=== PATIENT | female | born 1940 | race Caucasian/White ===

== ENCOUNTER → 2017-05-04 | Outpatient (CLI) | payer OTHER ==
[~2017-05-04] MED LIST: ACET-1256 PO; ASPI-435 PO; ATOR-14 PO; CALC1TAB9 PO; CITA40TA12 PO; ERGO500011 PO; FERR1TAB13 PO; IMD/2 PO; LISI-725 PO; LPR25 PO; METF1000 PO; MULTTAB58 PO; PRLSR20 PO
[2017-05-04 13:49] LABS: HEMATOCRIT 41.9 % (37-47); MEAN CELL VOLUME 90.9 fL (80-100); MEAN CORPUSCULAR HEMOGLOBIN 29.1 pg (25-34); MEAN PLATELET VOLUME 12.3 fL (7.4-10.4); PLATELET COUNT 314 K/uL (130-400); RED BLOOD COUNT 4.61 M/uL (4.2-5.4); WHITE BLOOD COUNT 7.88 K/uL (4.8-10.8)
[2017-05-04 13:52] LABS: ESTIMATED AVERAGE GLUCOSE 171 mg/dl; HA1C FLAG Normal (Normal)
[2017-05-04 14:08] LABS: ALT/SGPT 18 U/L (12-78); BLOOD UREA NITROGEN 14 mg/dl (7-18); BUN/CREATININE RATIO 13.1 (10-20); CARBON DIOXIDE 25 mmol/L (21-32); CHLORIDE 102 mmol/L (98-107); CHOLESTEROL 139 mg/dl (0-200); CREATININE 1.07 mg/dl (0.60-1.20); GLUCOSE 156 mg/dl (70-99); POTASSIUM 4.5 mmol/L (3.5-5.1); SODIUM 133 mmol/L (136-145)
[2017-05-04 14:19] LABS: ALKALINE PHOSPHATASE 138 U/L (45-117); AST/SGOT 11 U/L (15-37); CHOLESTEROL/HDL RATIO 2.2; HDL CHOLESTEROL 63 mg/dl; LDL CHOLESTEROL CALCULATED 34 mg/dl; TRIGLYCERIDES 208 mg/dl (0-150); VERY LOW DENSITY LIPOPROT CALC 42 mg/dl
== END | disposition home or self-care (01) ==
LOC: C.LABBC 09:33
PROVIDERS: ATTEND Physician Assistant
DX: E11.9 Type 2 diabetes mellitus without complications (principal); E66.9 Obesity, unspecified; I25.10 Atherosclerotic heart disease of native coronary artery without angina pectoris; E78.5 Hyperlipidemia, unspecified; Z98.890 Other specified postprocedural states

== ENCOUNTER → 2017-06-22 | Outpatient (CLI) | payer OTHER ==
--- NOTE | 2017-06-23 15:39 | MAMMOGRAPHY REPORT ---
BILATERAL DIGITAL SCREENING MAMMOGRAM TOMOSYNTHESIS WITH CAD: 06/22/2017 CLINICAL HISTORY: Routine screening. TECHNIQUE: Breast tomosynthesis in addition to standard 2D mammography was performed. Current study was also evaluated with a Computer Aided Detection (CAD) system. COMPARISON: Comparison is made to exams dated: 05/20/2016 mammogram, 05/15/2015 mammogram, 4 mammogram, 04/18/2013 mammogram, 03/31/2012 mammogram, and 12/15/2010 mammogram - [facility]. BREAST COMPOSITION: There are scattered areas of fibroglandular density in both breasts. FINDINGS: There are mild to moderate vascular calcifications in the breasts, and a few additional sca ttered benign round and rim calcifications. No suspicious mass, architectural distortion or cluster of suspicious microcalcifications is seen. IMPRESSION: ACR BI-RADS CATEGORY 1: NEGATIVE There is no mammographic evidence of malignancy. A 1 year screening mammogram is recommended. The pa tient will receive written notification of the results. Approximately 10% of breast cancers are not detected with mammography. A negative mammographic report should not delay biopsy if a clinically suggestive mass is present. Betty Giordano M.D. ay/:06/22/2017 16:40:41 Jailor: Martin DEVI(Radha)(Laurie), [facility] letter sent: Normal 1/2 BI-RADS Code: ACR BI-RADS Category 1: Negative
== END | disposition home or self-care (01) ==
LOC: C.MAMM 13:31
PROVIDERS: ATTEND Obstetrics & Gynecology
DX: Z12.31 Encounter for screening mammogram for malignant neoplasm of breast (principal)

== ENCOUNTER 2017-09-27 16:38 | Observation (INO) | payer OTHER ==
[~2017-09-27] VITALS: Ht 161.3 cm; Wt 105.0 kg
[2017-09-27] MEDS ORDERED: SODIUM CHLORIDE 0.9% 1000ML 1,000 ML IV SCH (16:46)
--- NOTE | 2017-09-27 17:10 | DIAGNOSTIC IMAGING REPORT ---
SINGLE VIEW CHEST CLINICAL HISTORY: Strokelike symptoms. FINDINGS: An AP, portable, upright chest radiograph is compared to study dated 02/10/2012. The examination is degraded by portable technique, apical lordotic positioning, and patient rotation. The heart is top normal for projection and there is mild atherosclerotic calcification of the thoracic aorta. The pulmonary vasculature is noncongested. Chronic interstitial thickening is similar to previous. No airspace consolidation or pleural effusion is identified. No pneumothorax is seen. The skeletal structures are osteopenic. The bony thorax is grossly intact. Cholecystectomy clips are noted in the right upper quadrant. IMPRESSION: No acute cardiopulmonary abnormality. Electronically signed by: Adriano Cannon M.D. 09/27/2017 5:08 PM Dictated Date/Time: 09/27/2017 5:07 PM
[2017-09-27 17:15] LABS: BASO % 0.3 %; BASO ABS # 0.04 K/uL (0-0.2); EOS % 2.2 %; EOS ABS # 0.26 K/uL (0-0.5); HEMATOCRIT 37.9 % (37-47); HEMOGLOBIN 12.3 g/dL (12.0-16.0); IG# 0.02 K/uL (0.00-0.02); LYMPH % 25.1 %; LYMPH ABS # 2.97 K/uL (1.2-3.4); MEAN CELL VOLUME 89.4 fL (80-100); MEAN CORPUSCULAR HGB CONC 32.5 g/dl (32-36); MEAN PLATELET VOLUME 11.4 fL (7.4-10.4); MONO % 9.8 %; MONO ABS # 1.16 K/uL (0.11-0.59); NEUT % 62.4 %; NEUT ABS # 7.38 K/uL (1.4-6.5); PLATELET COUNT 295 K/uL (130-400); RED CELL DISTRIBUTION WIDTH CV 13.4 % (11.5-14.5); RED CELL DISTRIBUTION WIDTH SD 43.8 fL (36.4-46.3); WHITE BLOOD COUNT 11.83 K/uL (4.8-10.8)
--- NOTE | 2017-09-27 17:22 | DIAGNOSTIC IMAGING REPORT ---
HEAD WITHOUT CONTRAST (CT) CT DOSE: 751.85 mGycm HISTORY: Mental status change Stroke TECHNIQUE: Multiaxial CT images of the head were performed without the use of intravenous contrast. A dose lowering technique was utilized adhering to the principles of ALARA. Comparison: None. Findings: The paranasal sinuses and mastoid air cells are clear. The calvarium and skull base are intact. The ventricles and sulci are within normal limits. There is no mass, hematoma, midline shift, or acute infarct. Impression: No acute intracranial abnormality. The above report was generated using voice recognition software. It may contain grammatical, syntax or spelling errors. Electronically signed by: Liam Gomez M.D. 09/27/2017 5:20 PM Dictated Date/Time: 09/27/2017 5:19 PM
[2017-09-27 17:39] LABS: BLOOD UREA NITROGEN 17 mg/dl (7-18); CALCIUM 9.3 mg/dl (8.5-10.1); CARBON DIOXIDE 24 mmol/L (21-32); CKMB 2.2 ng/ml (0.5-3.6); CREATININE 1.23 mg/dl (0.60-1.20); GLUCOSE 125 mg/dl (70-99); POTASSIUM 4.6 mmol/L (3.5-5.1); SODIUM 135 mmol/L (136-145)
--- NOTE | 2017-09-27 17:48 | EMERGENCY ROOM VISIT NOTE ---
History Report prepared by Amanda: Keri Koch Under the Supervision of: Samuel GillisO. First contact with patient: 16:45 Chief Complaint: STROKE SYMPTOMS Stated Complaint: POSSIBLE MINI STROKE History of Present Illness The patient is a 76 year old female who presents to the Emergency Room with complaints of persistent stroke like symptoms that began about 2 hours ago. She reports that first, her left arm began feeling numb and was having difficulty grasping onto objects. Afterwards, she began experiencing a one-sided facial droop and slurred speech. The patient states that she had the symptoms for about 15-20 minutes. She denies having any headaches or a stroke in the past. The patient reports a history of Type 2 diabetes and stents. She denies being on any blood thinners. Source of History: patient Onset: about 2 hours ago Position: other (cerebrovascular ) Quality: other (stroke-like symptoms) Timing: other (persistent) Note: Associated symptoms: arm numbness, difficulty grasping, facial droop, and slurred speech. Review of Systems See HPI for pertinent positives & negatives. A total of 10 systems reviewed and were otherwise negative. Past Medical & Surgical Medical Problems: (1) HTN (hypertension) (2) Type 2 diabetes mellitus Surgical Problems: (1) History of cholecystectomy (2) History of heart artery stent Family History Cancer FH: HTN (hypertension) Lung disease Social History Smoking Status: Never Smoker Smokeless Tobacco Use: No Alcohol Use: none Drug Use: none Marital Status: Housing Status: lives with family Current/Historical Medications Scheduled Aspirin (Aspirin Ec), 81 MG PO QAM Atorvastatin (Lipitor), 10 MG PO QAM Calcium Carbonate-Vitamin D (Calcium + D), 1 TAB PO BID Citalopram Hydrobromide (Celexa), 20 MG PO QAM Ergocalciferol (Vitamin D 24953 Unit), 50,000 INTER.UNIT PO MONTHLY Ferrous Sulfate (Ferrous Sulfate), 325 MG PO BID Glimepiride (Amaryl), 1 MG PO QAM Isosorbide Mononitrate (Isosorbide Mononitrate ER), 30 MG PO QAM Lisinopril (Zestril), 20 MG PO QAM Metformin Hcl (Glucophage), 1,000 MG PO BID Metoprolol Tartrate (Lopressor), 25 MG PO BID Naproxen (Aleve), 220 MG PO BID Omeprazole (Prilosec), 20 MG PO QAM Pediatric Multiple Vitamin W/ (Flintstones Chewable), 1 TAB PO BID Scheduled PRN Acetaminophen (Tylenol), 1,000 MG PO TID PRN for Pain Loperamide Hcl (Imodium), 4-6 MG PO DAILY PRN for Diarrhea Allergies Coded Allergies: [place] (Verified Allergy, Mild, STUFFY, 03/26/16) Epinephrine (Verified Adverse Reaction, Mild, THROAT FEELS COLD;HR INCREASES, 03/26/16) Physical Exam Vital Signs Date Time Temp Pulse Resp B/P (MAP) Pulse Ox O2 Delivery O2 Flow Rate FiO2 09/27/17 19:13 56 24 193/88 98 Room Air 09/27/17 18:29 61 26 174/88 98 Room Air 09/27/17 17:24 96 Room Air 09/27/17 17:18 62 20 173/87 97 Room Air 09/27/17 16:41 36.4 64 20 200/89 97 Room Air Physical Exam GENERAL: Patient is awake, alert, and in no acute distress. Patient is mildly anxious appearing but overall comfortable. EYES: The conjunctivae are clear. The pupils are round and reactive. EARS, NOSE, MOUTH AND THROAT: The nose is without any evidence of any deformity. Mucous membranes are moist tongue is midline NECK: The neck is nontender and supple. RESPIRATORY: Normal respiratory effort is noted there is no evidence of wheezing rhonchi or rales CARDIOVASCULAR: Regular rate and rhythm noted there no murmurs rubs or gallops normal S1 normal S2 GASTROINTESTINAL: The abdomen is soft. Bowel sounds are present in all quadrants. Abdomen is nontender MUSCULOSKELETAL/EXTREMITIES: There is no evidence of gross deformity full range of motion is noted in the hips and shoulders SKIN: There is no obvious evidence of any rash. There are no petechiae, pallor or cyanosis noted. NEUROLOGIC: No facial droop was noted, no drift noted in upper extremities and patient was able to keep leg off bed for more than 5 seconds. Patient is awake alert and oriented x3 Medical Decision & Procedures ER Provider Diagnostic Interpretation: Radiology results as stated below per my review and radiologist interpretation: SINGLE VIEW CHEST CLINICAL HISTORY: Strokelike symptoms. FINDINGS: An AP, portable, upright chest radiograph is compared to study dated 02/10/2012. The examination is degraded by portable technique, apical lordotic positioning, and patient rotation. The heart is top normal for projection and there is mild atherosclerotic calcification of the thoracic aorta. The pulmonary vasculature is noncongested. Chronic interstitial thickening is similar to previous. No airspace consolidation or pleural effusion is identified. No pneumothorax is seen. The skeletal structures are osteopenic. The bony thorax is grossly intact. Cholecystectomy clips are noted in the right upper quadrant. IMPRESSION: No acute cardiopulmonary abnormality. Electronically signed by: Adriano Cannon M.D. 09/27/2017 5:08 PM Dictated Date/Time: 09/27/2017 5:07 PM HEAD WITHOUT CONTRAST (CT) CT DOSE: 751.85 mGycm HISTORY: Mental status change Stroke TECHNIQUE: Multiaxial CT images of the head were performed without the use of intravenous contrast. A dose lowering technique was utilized adhering to the principles of ALARA. Comparison: None. Findings: The paranasal sinuses and mastoid air cells are clear. The calvarium and skull base are intact. The ventricles and sulci are within normal limits. There is no mass, hematoma, midline shift, or acute infarct. Impression: No acute intracranial abnormality. The above report was generated using voice recognition software. It may contain grammatical, syntax or spelling errors. Electronically signed by: Liam Gomez M.D. 09/27/2017 5:20 PM Dictated Date/Time: 09/27/2017 5:19 PM Laboratory Results 09/27/17 16:55 Red Blood Count 4.24, Mean Corpuscular Volume 89.4, Mean Corpuscular Hemoglobin 29.0, Mean Corpuscular Hemoglobin Concent 32.5, Mean Platelet Volume 11.4, Neutrophils (%) (Auto) 62.4, Lymphocytes (%) (Auto) 25.1, Monocytes (%) (Auto) 9.8, Eosinophils (%) (Auto) 2.2, Basophils (%) (Auto) 0.3, Neutrophils # (Auto) 7.38, Lymphocytes # (Auto) 2.97, Monocytes # (Auto) 1.16, Eosinophils # (Auto) 0.26, Basophils # (Auto) 0.04 09/27/17 16:55 Test 09/27/17 16:55 09/27/17 18:10 09/27/17 18:34 White Blood Count 11.83 K/uL (4.8-10.8) Red Blood Count 4.24 M/uL (4.2-5.4) Hemoglobin 12.3 g/dL (12.0-16.0) Hematocrit 37.9 % (37-47) Mean Corpuscular Volume 89.4 fL (80-100) Mean Corpuscular Hemoglobin 29.0 pg (25-34) Mean Corpuscular Hemoglobin Concent 32.5 g/dl (32-36) Platelet Count 295 K/uL (130-400) Mean Platelet Volume 11.4 fL (7.4-10.4) Neutrophils (%) (Auto) 62.4 % Lymphocytes (%) (Auto) 25.1 % Monocytes (%) (Auto) 9.8 % Eosinophils (%) (Auto) 2.2 % Basophils (%) (Auto) 0.3 % Neutrophils # (Auto) 7.38 K/uL (1.4-6.5) Lymphocytes # (Auto) 2.97 K/uL (1.2-3.4) Monocytes # (Auto) 1.16 K/uL (0.11-0.59) Eosinophils # (Auto) 0.26 K/uL (0-0.5) Basophils # (Auto) 0.04 K/uL (0-0.2) RDW Standard Deviation 43.8 fL (36.4-46.3) RDW Coefficient of Variation 13.4 % (11.5-14.5) Immature Granulocyte % (Auto) 0.2 % Immature Granulocyte # (Auto) 0.02 K/uL (0.00-0.02) Anion Gap 8.0 mmol/L (3-11) Est Creatinine Clear Calc Drug Dose 46.6 ml/min Estimated GFR () 49.7 Estimated GFR (Non- 42.9 BUN/Creatinine Ratio 13.4 (10-20) Calcium Level 9.3 mg/dl (8.5-10.1) Magnesium Level 1.7 mg/dl (1.8-2.4) Total Creatine Kinase 89 U/L (26-192) Creatine Kinase MB 2.2 ng/ml (0.5-3.6) Creatine Kinase MB Ratio 2.5 (0-3.0) Troponin I < 0.015 ng/ml (0-0.045) Prothrombin Time 10.0 SECONDS (9.0-12.0) Prothromb Time International Ratio 1.0 (0.9-1.1) Activated Partial Thromboplast Time 25.1 SECONDS (21.0-31.0) Partial Thromboplastin Ratio 1.0 Urine Color YELLOW Urine Appearance CLEAR (CLEAR) Urine pH 5.0 (4.5-7.5) Urine Specific [place] 1.011 (1.000-1.030) Urine Protein NEG (NEG) Urine Glucose (UA) NEG (NEG) Urine Ketones NEG (NEG) Urine Occult Blood TRACE (NEG) Urine Nitrite NEG (NEG) Urine Bilirubin NEG (NEG) Urine Urobilinogen NEG (NEG) Urine Leukocyte Esterase MODERATE (NEG) Urine WBC (Auto) >30 /hpf (0-5) Urine RBC (Auto) 0-4 /hpf (0-4) Urine Hyaline Casts (Auto) 0 /lpf (0-5) Urine Epithelial Cells (Auto) 0-5 /lpf (0-5) Urine Bacteria (Auto) 4+ (NEG) Medications Administered Medications (Trade) Dose Ordered Sig/Margarita Route Start Time Stop Time Status Last Admin Dose Admin Sodium Chloride 1,000 ml @ 50 mls/hr Q20H IV 09/27/17 16:46 10/27/17 16:45 09/27/17 16:46 50 MLS/HR ECG Per My Interpretation Indication: other (stroke-like symptoms) Rate (beats per minute): 64 Rhythm: normal sinus Findings: no ectopy, other (No acute ST segments) Change: no significant change (02/12/12) ED Course 1645: The patient was evaluated in room A1. A complete history and physical examination were performed. 1646: Ordered Sodium Chloride 1000 ml @ 50mls/hr IV. 1737: I discussed the patient's case with Dr. Reyna, [facility] [place] hospitalist. The patient will be evaluated for further management. 1745: I reevaluated the patient, who was resting. Updated her on test findings and the treatment plan. She verbalized complete understanding and agreement. Medical Decision Prior records/ancillary studies reviewed and summarized above. Nursing notes reviewed. Differential diagnosis: Etiologies such as metabolic, infection, hypo/hyperglycemia, electrolyte abnormalities, cardiac sources, intracerebral event, toxicologic, neurologic, as well as others were entertained. The patient is a 76-year-old female who presented to the emergency department for an evaluation of possible stroke symptoms. The patient describes an episode that occurred earlier today which appears to be very consistent with stroke symptoms. The patient describes very significant symptoms of right arm weakness and right arm numbness. There was also report that the patient had some degree of dysarthria earlier. I discussed patient's laboratory and radiographic studies with her. At this time her symptoms appear to be significantly improved. She has no focal neurologic deficit. I discussed the patient's condition with the on-call [facility] hospitalist. They have agreed to evaluate the patient in the emergency department for further management and disposition. Medication Reconcilliation Current Medication List: was personally reviewed by me Blood Pressure Screening Patient's blood pressure: Elevated blood pressure Blood pressure disposition: Referred to PCP (monitored by [place] [facility]) Consults Time Called: 1736 Consulting Physician: RAFAEL Wharton hospitalist Returned Call: [phone] I discussed the patient's case with RAFAEL Wharton hospitalist. The patient will be evaluated for further management. Impression Primary Impression: TIA (transient ischemic attack) Scribe Attestation The scribe's documentation has been prepared under my direction and personally reviewed by me in its entirety. I confirm that the note above accurately reflects all work, treatment, procedures, and medical decision making performed by me. Departure Information Dispostion Being Evaluated By Hospitalist Referrals Patrick Acuña M.D. (PCP) Forms HOME CARE DOCUMENTATION FORM, IMPORTANT VISIT INFORMATION Patient Instructions My [facility] Problem Qualifiers Primary Impression: TIA (transient ischemic attack) Transient cerebral ischemia type: unspecified Qualified Codes: G45.9 - Transient cerebral ischemic attack, unspecified
[2017-09-27] MEDS ORDERED: GLIM1TAB PO (18:30)
[2017-09-27] MEDS ORDERED: ISOS-11 PO (18:30)
[2017-09-27] MEDS ORDERED: ATOR10TA82 PO (18:35)
[2017-09-27] MEDS ORDERED: FERR1TAB62 PO (18:35)
[2017-09-27] MEDS ORDERED: ASPI81TA28 PO (18:35)
[2017-09-27] MEDS ORDERED: CALC600T9 PO (18:35)
[2017-09-27] MEDS ORDERED: PEDICHW50 PO (18:35)
[2017-09-27] MEDS ORDERED: NAPR1TAB9 PO (18:36)
[2017-09-27 18:39] LABS: PTT PATIENT 25.1 SECONDS (21.0-31.0)
[2017-09-27] MEDS ORDERED: POLYETHYLENE (MIRALAX) 17 GM PACK PO PRN (19:15)
[2017-09-27] MEDS ORDERED: GLUCOSE 10 TABS/TUBE PO PRN (19:15)
[2017-09-27] MEDS ORDERED: ACETAMINOPHEN 325 MG TAB PO PRN (19:15)
[2017-09-27] MEDS ORDERED: PHARMACIST DISCHARGE MED REC CONSULT PRN (19:15)
[2017-09-27] MEDS ORDERED: GLUCOSE 40% GEL 15 GM TUBE PO PRN (19:15)
[2017-09-27] MEDS ORDERED: MAGNESIUM HYDROXIDE SUSP 30 ML UDC PO PRN (19:15)
[2017-09-27] MEDS ORDERED: DEXTROSE 50% 50 ML SYR IV PRN (19:15)
[2017-09-27] MEDS ORDERED: ALUMINUM/MAGNESIUM/SIMETH (MAALOX MAX) 30 ML UDC PO PRN (19:15)
[2017-09-27] MEDS ORDERED: GLUCAGON FOR INJ 1 MG VIAL SQ PRN (19:15)
[2017-09-27] MEDS ORDERED: ONDANSETRON INJ 2 MG/ML 2 ML VIAL IV PRN (19:15)
[2017-09-27] MEDS ORDERED: OPTIRAY 320 IV PRN (19:30)
--- NOTE | 2017-09-27 19:45 | History and Physical ---
History & Physical Date & Time of Service: Sep 27, 2017 at 19:23 Chief Complaint: Possible Mini Stroke Primary Care Physician: Patrick Acuña M.D. History of Present Illness Source: patient, spouse ( at bedside), clinic records, hospital records This is a 76 y/o female with a history of CAD, h/o NSTEMI s/p stent, HTN, HLD, DM II, h/o gastric bypass, depression, anxiety, and GERD who presented to the ED on 09/27 with right arm numbness and weakness, facial droop, and slurred speech. The patient states she was grocery shopping this afternoon when she noticed her right arm and hand become numb and weak. She then felt the right side of her face drooping. She passed by a window and saw a noticeable facial droop in her reflection. She felt her speech was slurred at that time and had trouble finding her words. She states this episode lasted for 15-20 minutes before resolving. She denied any dizziness/lightheadedness, vision changes, chest pain, shortness of breath, nausea or vomiting. She has never experienced anything like this before. The patient denies fevers, chills, sweats, chest pain, palpitations, claudication, cough, wheezing, shortness of breath, nausea, vomiting, abdominal pain, dysuria, hematuria, urinary retention, paralysis. Past Medical/Surgical History Medical Problems: (1) HTN (hypertension) (2) Type 2 diabetes mellitus Surgical Problems: (1) History of cholecystectomy (2) History of heart artery stent Gastric bypass CAD H/o NSTEMI HLD Depression and anxiety GERD Family History Cancer (breast, lung, melanoma) FH: HTN (hypertension) Lung disease Social History Smoking Status: Never Smoker Smokeless Tobacco Use: No Alcohol Use: none Drug Use: none Marital Status: Housing status: lives with significant other Occupational Status: retired Immunizations History of Influenza Vaccine: No History of Tetanus Vaccine?: No History of Pneumococcal: No History of Hepatitis B Vaccine: Unknown Allergies Coded Allergies: [place] (Verified Allergy, Mild, STUFFY, 03/26/16) Epinephrine (Verified Adverse Reaction, Mild, THROAT FEELS COLD;HR INCREASES, 03/26/16) Home Medications Scheduled Aspirin (Aspirin Ec), 81 MG PO QAM Atorvastatin (Lipitor), 10 MG PO QAM Calcium Carbonate-Vitamin D (Calcium + D), 1 TAB PO BID Citalopram Hydrobromide (Celexa), 20 MG PO QAM Ergocalciferol (Vitamin D 39073 Unit), 50,000 INTER.UNIT PO MONTHLY Ferrous Sulfate (Ferrous Sulfate), 325 MG PO BID Glimepiride (Amaryl), 1 MG PO QAM Isosorbide Mononitrate (Isosorbide Mononitrate ER), 30 MG PO QAM Lisinopril (Zestril), 20 MG PO QAM Metformin Hcl (Glucophage), 1,000 MG PO BID Metoprolol Tartrate (Lopressor), 25 MG PO BID Naproxen (Aleve), 220 MG PO BID Omeprazole (Prilosec), 20 MG PO QAM Pediatric Multiple Vitamin W/ (Flintstones Chewable), 1 TAB PO BID Scheduled PRN Acetaminophen (Tylenol), 1,000 MG PO TID PRN for Pain Loperamide Hcl (Imodium), 4-6 MG PO DAILY PRN for Diarrhea Review of Systems Constitutional: No fever, No chills, No sweats Eyes: No worsening of vision, No eye pain, No diplopia ENT: No hearing loss, No nasal symptoms, No trouble swallowing Respiratory: No cough, No wheezing, No shortness of breath Cardiovascular: No chest pain, No claudication, No palpitations Abdomen: No pain, No nausea, No vomiting Musculoskeletal: No joint pain, No muscle pain, No swelling Genitourinary - Female: No dysuria, No urinary retention, No hematuria Neurologic: +Right arm numbness, right arm weakness. Slurred speech, facial droop. Episode lasting 15-20 min, all now resolved. No paralysis Integumentary: No rash, No itch, No color change Physical Exam Vital Signs Date Time Temp Pulse Resp B/P (MAP) Pulse Ox O2 Delivery O2 Flow Rate FiO2 09/27/17 19:13 56 24 193/88 98 Room Air 09/27/17 18:29 61 26 174/88 98 Room Air 09/27/17 17:24 96 Room Air 09/27/17 17:18 62 20 173/87 97 Room Air 09/27/17 16:41 36.4 64 20 200/89 97 Room Air General appearance: +Morbidly obese. Well-developed, well-nourished, no apparent distress Head: Normocephalic, atraumatic Eyes: Normal inspection, PERRL, EOMI ENT: Normal ENT inspection, hearing grossly normal, pharynx normal Neck: Supple, no JVD, trachea midline Respiratory/Chest: Lungs clear to auscultation, normal breath sounds, no respiratory distress Cardiovascular: Regular rate & rhythm, no gallop, no murmur Abdomen/GI: Normal bowel sounds, non-tender, soft Extremities/Musculoskeletal: Normal inspection, no calf tenderness, no pedal edema Neurological/Psych: +No noted facial droop or slurred speech. No pronator drift. Strength 5/5 in all extremities. Sensation intact bilaterally. Finger to nose intact. Alert, normal mood/affect, oriented x 3 Skin: Normal color, warm/dry, no rash Diagnostics Laboratory Results Results Past 24 Hours Test 09/27/17 16:55 09/27/17 18:10 09/27/17 18:34 Range/Units White Blood Count 11.83 4.8-10.8 K/uL Red Blood Count 4.24 4.2-5.4 M/uL Hemoglobin 12.3 12.0-16.0 g/dL Hematocrit 37.9 37-47 % Mean Corpuscular Volume 89.4 80-100 fL Mean Corpuscular Hemoglobin 29.0 25-34 pg Mean Corpuscular Hemoglobin Concent 32.5 32-36 g/dl Platelet Count 295 130-400 K/uL Mean Platelet Volume 11.4 7.4-10.4 fL Neutrophils (%) (Auto) 62.4 % Lymphocytes (%) (Auto) 25.1 % Monocytes (%) (Auto) 9.8 % Eosinophils (%) (Auto) 2.2 % Basophils (%) (Auto) 0.3 % Neutrophils # (Auto) 7.38 1.4-6.5 K/uL Lymphocytes # (Auto) 2.97 1.2-3.4 K/uL Monocytes # (Auto) 1.16 0.11-0.59 K/uL Eosinophils # (Auto) 0.26 0-0.5 K/uL Basophils # (Auto) 0.04 0-0.2 K/uL RDW Standard Deviation 43.8 36.4-46.3 fL RDW Coefficient of Variation 13.4 11.5-14.5 % Immature Granulocyte % (Auto) 0.2 % Immature Granulocyte # (Auto) 0.02 0.00-0.02 K/uL Sodium Level 135 136-145 mmol/L Potassium Level 4.6 3.5-5.1 mmol/L Chloride Level 103 98-107 mmol/L Carbon Dioxide Level 24 21-32 mmol/L Anion Gap 8.0 3-11 mmol/L Blood Urea Nitrogen 17 7-18 mg/dl Creatinine 1.23 0.60-1.20 mg/dl Est Creatinine Clear Calc Drug Dose 46.6 ml/min Estimated GFR () 49.7 Estimated GFR (Non- 42.9 BUN/Creatinine Ratio 13.4 10-20 Random Glucose 125 70-99 mg/dl Calcium Level 9.3 8.5-10.1 mg/dl Magnesium Level 1.7 1.8-2.4 mg/dl Total Creatine Kinase 89 26-192 U/L Creatine Kinase MB 2.2 0.5-3.6 ng/ml Creatine Kinase MB Ratio 2.5 0-3.0 Troponin I < 0.015 0-0.045 ng/ml Prothrombin Time 10.0 9.0-12.0 SECONDS Prothromb Time International Ratio 1.0 0.9-1.1 Activated Partial Thromboplast Time 25.1 21.0-31.0 SECONDS Partial Thromboplastin Ratio 1.0 Urine Color YELLOW Urine Appearance CLEAR CLEAR Urine pH 5.0 4.5-7.5 Urine Specific [place] 1.011 1.000-1.030 Urine Protein NEG NEG Urine Glucose (UA) NEG NEG Urine Ketones NEG NEG Urine Occult Blood TRACE NEG Urine Nitrite NEG NEG Urine Bilirubin NEG NEG Urine Urobilinogen NEG NEG Urine Leukocyte Esterase MODERATE NEG Urine WBC (Auto) >30 0-5 /hpf Urine RBC (Auto) 0-4 0-4 /hpf Urine Hyaline Casts (Auto) 0 0-5 /lpf Urine Epithelial Cells (Auto) 0-5 0-5 /lpf Urine Bacteria (Auto) 4+ NEG Microbiology Results 09/27/17 Urine Culture, Received Pending Diagnostic Radiology Reviewed the following studies and agree with interpretation as follows: HEAD WITHOUT CONTRAST (CT) CT DOSE: 751.85 mGycm HISTORY: Mental status change Stroke TECHNIQUE: Multiaxial CT images of the head were performed without the use of intravenous contrast. A dose lowering technique was utilized adhering to the principles of ALARA. Comparison: None. Findings: The paranasal sinuses and mastoid air cells are clear. The calvarium and skull base are intact. The ventricles and sulci are within normal limits. There is no mass, hematoma, midline shift, or acute infarct. Impression: No acute intracranial abnormality. SINGLE VIEW CHEST CLINICAL HISTORY: Strokelike symptoms. FINDINGS: An AP, portable, upright chest radiograph is compared to study dated 02/10/2012. The examination is degraded by portable technique, apical lordotic positioning, and patient rotation. The heart is top normal for projection and there is mild atherosclerotic calcification of the thoracic aorta. The pulmonary vasculature is noncongested. Chronic interstitial thickening is similar to previous. No airspace consolidation or pleural effusion is identified. No pneumothorax is seen. The skeletal structures are osteopenic. The bony thorax is grossly intact. Cholecystectomy clips are noted in the right upper quadrant. IMPRESSION: No acute cardiopulmonary abnormality. EKG Reviewed EKG and agree with interpretation as follows: 64 bpm, NSR Impression Assessment and Plan 76 y/o female with a history of CAD, h/o NSTEMI s/p stent, HTN, HLD, DM II, h/o gastric bypass, depression, anxiety, and GERD who presented to the ED on 09/27 with right arm numbness and weakness, facial droop, and slurred speech. Symptoms resolved after 15-20 minutes. BP elevated on arrival, 200/89. BP then improved to 174/88. Vital signs otherwise stable. Head CT no acute disease. CXR no acute disease. EKG no ischemic changes. Cardiac enzymes negative. TIA -Admit to telemetry for observation -Stroke protocol -Neuro checks q4h -Check CTA head and neck. Will hold off on MRI as symptoms very brief -Echocardiogram -Consult neurology, appreciate recs -Check HgbA1c and fasting lipid panel -Continue ASA, beta chelsey, KASSI inhibitor -Increase Lipitor to 40 mg PO qd Hypomagnesemia -Magnesium 1.7 on admission -Magnesium sulfate 1 gm IV x 1, continue to monitor CAD, h/o NSTEMI s/p stent, HTN, HLD--stable -Continue ASA, Lopressor 25 mg PO BID, lisinopril 20 mg PO qd, Imdur 30 mg PO qd -Lipitor increased as above DM II--last HgbA1c 7.6 on 05/04/17 -Hold metformin, glimepiride -Insulin sliding scale -Check BSGs q ac and qhs -Recheck A1c Depression, anxiety -Continue Celexa 20 mg PO qd GERD -Continue PPI DVT prophylaxis -Enoxaparin 40 mg SC q24h -RODRIGUE crowellcarter king Miranda Code Status -Level I, FULL RESUSCITATION STATUS I personally interviewed and examined the patient. I agree with history of present illness and physical exam mentioned above, I also performed my own history taking and examination. Past medical history and review of system has been obtained by myself I reviewed all pertinent labs and studies Reviewed current medications I discussed and formulated of the assessment and plan mentioned above. Please refer to the Summary mentioned below. 76-year-old female with history of coronary artery disease status post stent, hypertension, dyslipidemia, diabetes mellitus type 2, depression and GERD presented to the ED with an episode of right-sided numbness and slurred speech. Episode lasted about 20 minutes. Currently all symptoms resolved. Patient is already on baby aspirin daily, discussed with Dr. Ware who recommended switching aspirin to Plavix. Also will order CT angiogram head and neck rule out any critical stenosis. Start patient on IV fluid hydration and order 2D echo name. General Appearance: not in acute distress Eyes: normal Sclerae, extraocular muscle intact ENT: hearing grossly normal Neck: supple Respiratory/Chest: normal air entry bilateral ,no respiratory distress, no accessory muscle use Cardiovascular: regular rate, rhythm, no murmur Abdomen: non tender, soft, no masses Extremities: no edema musculoskeletal: no significant swelling or inflammation in any joint Neurologic/Psychiatric: Awake alert oriented times place and person moves all extremities sensation intact cranial nerves II-12 appear to be intact Skin: normal color, warm/dry, no rash Brooklyn Mcgrath MD, [facility] Resuscitation Status VTE Prophylaxis Will order VTE Prophylaxis: Yes
[2017-09-27] MEDS ORDERED: IV FLUIDS COMPLETED PRN (20:15)
[2017-09-27 20:20] VITALS: BP 185/96; PULSE 62; TEMP 36.5; O2SAT 96; Ht 161.3 cm; Wt 105.0 kg
[2017-09-27 20:24] VITALS: O2SAT 98
[2017-09-27] MEDS ORDERED: CLOPIDOGREL BISULFATE 75 MG TAB PO ONE (20:45)
[2017-09-27] MEDS ORDERED: MAGNESIUM SULFATE 1GM / D5W 100 ML IV ONE (20:45)
[2017-09-27] MEDS ORDERED: ENOXAPARIN 40 MG/0.4 ML SYR SC SCH (21:00)
[2017-09-27] MEDS: INSULIN ASPART 100 UNITS/ML 3 ML PEN SC SCH (22:44)
[2017-09-27] MEDS: METOPROLOL TARTRATE 25 MG TAB PO SCH (22:45)
--- NOTE | 2017-09-27 23:04 | DIAGNOSTIC IMAGING REPORT ---
HEAD ANGIO WITH CONTRAST CLINICAL HISTORY: Mental status change Stroke TECHNIQUE: Transaxial acquisition with multi axial reformatted images COMPARISON STUDY: None FINDINGS: Minimal scattered atherosclerotic plaque formation. No evidence for significant stenotic process. No evidence for aneurysm or dissection. IMPRESSION: Minimal scattered plaque formation. No significant stenosis. No evidence for aneurysm or dissection. The above report was generated using voice recognition software. It may contain grammatical, syntax or spelling errors. Electronically signed by: Liam Gomez M.D. 09/27/2017 11:03 PM Dictated Date/Time: 09/27/2017 11:00 PM
--- NOTE | 2017-09-27 23:09 | DIAGNOSTIC IMAGING REPORT ---
NECK ANGIO WITH CONTRAST HISTORY: Mental status change stroke TECHNIQUE: Multiaxial CT images of the neck were performed following the intravenous administration of contrast to evaluate the major cervical vessels. Maximum intensity projection images were also obtained. All measurements were calculated based on NASCET criteria. A dose lowering technique was utilized adhering to the principles of ALARA. COMPARISON STUDY: None. FINDINGS: The aortic arch and proximal great vessels are widely patent. There is no significant stenosis, occlusion, or dissection identified within the vertebral arteries. There are considerable plaque formation involving the carotid systems bilaterally and to a lesser extent vertebral basilar system. There is a 50-70% narrowing of the proximal internal carotid arteries bilaterally. Scattered additional plaque formation is identified throughout. No evidence for dissection. The vertebral basilar system is suboptimally visualized. Nevertheless, a significant stenotic process is not appreciated. IMPRESSION: 1. Considerable plaque formation involving the carotid systems bilaterally. 2. 50-70% narrowing of the proximal internal carotid arteries bilaterally 3. No significant stenotic process of the vertebral basilar system. The above report was generated using voice recognition software. It may contain grammatical, syntax or spelling errors. Electronically signed by: Liam Gomez M.D. 09/27/2017 11:08 PM Dictated Date/Time: 09/27/2017 11:03 PM
[2017-09-27 23:35] VITALS: BP 159/63; PULSE 64; TEMP 36.9; O2SAT 98
[2017-09-28 01:19] LABS: CKMB 2.1 ng/ml (0.5-3.6)
[2017-09-28 03:35] VITALS: BP 178/78; PULSE 63; TEMP 36.7; O2SAT 96
[2017-09-28 06:24] LABS: BASO % 0.5 %; BASO ABS # 0.04 K/uL (0-0.2); EOS % 3.3 %; EOS ABS # 0.28 K/uL (0-0.5); HEMATOCRIT 35.4 % (37-47); HEMOGLOBIN 11.6 g/dL (12.0-16.0); IG# 0.01 K/uL (0.00-0.02); LYMPH % 30.7 %; LYMPH ABS # 2.58 K/uL (1.2-3.4); MEAN CELL VOLUME 88.5 fL (80-100); MEAN CORPUSCULAR HGB CONC 32.8 g/dl (32-36); MEAN PLATELET VOLUME 11.3 fL (7.4-10.4); MONO % 11.3 %; MONO ABS # 0.95 K/uL (0.11-0.59); NEUT % 54.1 %; NEUT ABS # 4.55 K/uL (1.4-6.5); PLATELET COUNT 242 K/uL (130-400); RED CELL DISTRIBUTION WIDTH CV 13.1 % (11.5-14.5); RED CELL DISTRIBUTION WIDTH SD 42.8 fL (36.4-46.3); WHITE BLOOD COUNT 8.41 K/uL (4.8-10.8)
[2017-09-28 06:42] LABS: HEMOGLOBIN A1C 6.4 % (4.5-5.6)
[2017-09-28 06:53] LABS: CALCIUM 8.7 mg/dl (8.5-10.1); CREATININE 1.03 mg/dl (0.60-1.20); POTASSIUM 4.5 mmol/L (3.5-5.1)
[2017-09-28 07:04] VITALS: BP 149/75; PULSE 70; TEMP 36.8; O2SAT 96
[2017-09-28] MEDS: INSULIN ASPART 100 UNITS/ML 3 ML PEN SC SCH ×2 (08:05→12:21)
[2017-09-28] MEDS: METOPROLOL TARTRATE 25 MG TAB PO SCH (08:08)
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
[2017-09-28] MEDS ORDERED: ISOSORBIDE MONONITRATE 30 MG TABCR PO SCH (09:00)
[2017-09-28] MEDS ORDERED: LISINOPRIL 20 MG TAB PO SCH (09:00)
[2017-09-28] MEDS ORDERED: PANTOprazole SOD 40 MG TAB PO SCH (09:00)
[2017-09-28] MEDS ORDERED: ATORVASTATIN 40 MG TAB PO SCH (09:00)
[2017-09-28] MEDS ORDERED: ASPIRIN 81 MG ECTAB PO SCH (09:00)
[2017-09-28] MEDS ORDERED: CLOPIDOGREL BISULFATE 75 MG TAB PO SCH (09:00)
[2017-09-28] MEDS ORDERED: CITALOPRAM 20 MG TAB PO SCH (09:00)
[2017-09-28] MEDS ORDERED: NURSING VERBAL MED ORDER ONE (09:45)
[2017-09-28] MEDS ORDERED: LORAZEPAM INJ 0.5 MG in SYRINGE 0.75 ML IV SCH (10:00)
[2017-09-28] MEDS ORDERED: LORAZEPAM 2 MG/ML 1 ML VIAL ONE (10:04)
[2017-09-28 10:20] LABS: CKMB 1.5 ng/ml (0.5-3.6)
--- NOTE | 2017-09-28 11:17 | DIAGNOSTIC IMAGING REPORT ---
MRI OF THE BRAIN COMBO CLINICAL HISTORY: Transient ischemic attack. Right-sided weakness. COMPARISON STUDY: CT of the brain dated 09/27/2017. TECHNIQUE: MRI of the brain was performed utilizing various T1 and T2-weighted sequences in the axial, sagittal, and coronal planes. Contrast-enhanced sequences were acquired following the administration of 10 cc of Gadavist. FINDINGS: Brain parenchyma: There are age-related involutional changes noting mild subcortical and periventricular microangiopathic disease. There is no hemorrhage or mass effect. There is no restricted diffusion to suggest acute ischemia. No enhancing mass lesion is identified on the postcontrast images. Cortes-white matter differentiation is preserved. No extra-axial fluid collection is seen. The cerebellar tonsils are normal in configuration. Ventricles, sulci, and cisterns: Prominent secondary to involutional change. Pituitary and sella: Unremarkable. Intracranial vasculature: Normal flow voids are maintained at the skull base. Orbits: The bony orbits are grossly intact. Orbital contents are normal in appearance noting bilateral ocular lens implants. Sinuses and mastoids: Clear. Calvarium: Unremarkable. Cervical cord: Partially visualized cervical spinal cord is normal in morphology and signal intensity. IMPRESSION: No acute intracranial abnormality. Electronically signed by: Adriano Cannon M.D. 09/28/2017 11:15 AM Dictated Date/Time: 09/28/2017 11:12 AM
[2017-09-28] MEDS ORDERED: CIPROFLOXACIN 500 MG TAB PO ONE (11:28)
[2017-09-28] MEDS ORDERED: CPR500 PO (11:51)
[2017-09-28] MEDS ORDERED: LPT40 PO (11:51)
[2017-09-28] MEDS ORDERED: PLV75 PO (11:51)
--- NOTE | 2017-09-28 11:57 | Discharge Instructions ---
Discharge Instructions Date of Service September 28, 2017. Admission Reason for Admission: TIA Discharge Discharge Diagnosis / Problem: TIA Discharge Goals Goal(s): Improve disease control, Diagnostic testing, Therapeutic intervention Activity Recommendations Activity Limitations: as noted below Exercise/Sports Limitations: gradually increase as tolerated Shower/Bathe: no limitations Driving or Machine Use: No driving for 2 days . Instructions / Follow-Up Instructions / Follow-Up You were admitted with signs of a stroke that resolved on their own. This is called a transient ischemic attack (TIA). You had imaging of the brain which did not show evidence of a stroke. Imaging of your carotid arteries showed a moderate blockage on both sides. This should be managed medically with increasing the dose of your atorvastatin, as well as switching you from aspirin to Plavix. He should have your carotid arteries imaged with ultrasound annually to follow this. You should continue to maintain excellent control of your blood sugar as you are doing, as well as increase your exercise level and continue with good blood pressure control. He will also found to have evidence of a urinary tract infection. It is unclear if this contributed to the symptoms that you had despite you not having any urinary symptoms. Nonetheless, it is reasonable to treat this with 3 days of an antibiotic called ciprofloxacin. Please have your primary care physician follow-up on the final results of your urine culture. Please follow-up with your PCP within 1 week as scheduled. Risk Factors for Stroke: You can reduce your chances of stroke by working with your medical provider to adopt a healthy lifestyle. Some specific ways to lower your chance of stroke are: * If you are a smoker, now is the time to stop smoking cigarettes * If you are diabetic, improve the control of your blood sugars * Avoid excessive amounts of alcohol * Control high blood pressure * Lose weight if you are overweight * Be sure to lead an active lifestyle * Eat a healthy diet low in salt, cholesterol and fat You should know about other risk factors for stroke that you are unable to control. These include: * Age 55 years or older * Male gender * Certain racial groups: , or / * Family History of Stroke, Mini stroke or Heart Attack * Sickle Cell Disease Follow Up: It is important for you to keep your follow up appointments with your medical provider. Current Hospital Diet Patient's current hospital diet: AHA Diet (Heart Healthy), Diabetes Type 2 Diet Discharge Diet Recommended Diet: Low Sodium Diet (2gm Na), Diabetes Type 2 Diet Procedures Procedures Performed: MRI brain CT angiogram head and neck Chest x-ray Echocardiogram Pending Studies Studies pending at discharge: yes List of pending studies: Urine culture Laboratory Results Hemoglobin A1c Test 09/28/17 06:11 Range/Units Estimated Average Glucose 137 mg/dl Hemoglobin A1c 6.4 H 4.5-5.6 % Lipid Panel Test 09/28/17 06:11 Range/Units Triglycerides Level 103 0-150 mg/dl Cholesterol Level 100 0-200 mg/dl HDL Cholesterol 50 mg/dl Cholesterol/HDL Ratio 2.0 LDL Cholesterol, Calculated 29 mg/dl Medical Emergencies . Who to Call and When: Medical Emergencies: Call 911 immediately if you experience any of the following warning signs and symptoms of Stroke: * Sudden numbness or weakness of the face, arm or leg, especially on one side of the body * Sudden confusion, trouble speaking or understanding * Sudden trouble seeing in one or both eyes * Sudden trouble walking, dizziness, loss of balance or coordination * Sudden severe headache with no cause Do not delay calling 911 if you experience any warning signs or symptoms of a stroke. Delay in seeking medical attention may affect what treatments can be given to you. . Non-Emergent Contact Non-Emergency issues call your: Primary Care Provider Call Non-Emergent contact if: you have any medication questions . . "Provider Documentation" section prepared by Rossana Erazo. . Stroke Core Measures Reason no t-PA for Stroke: Treatment not indicated Reason no antithrom by day 2: Treatment provided - N/A Reason no antithrom at D/C: Treatment provided - N/A Reason no statin at D/C: Treatment provided - N/A Reason no anticoag w/a fib: Treatment provided - N/A
--- NOTE | 2017-09-28 12:02 | Discharge Summary ---
Discharge Summary Date of Service September 28, 2017. Discharge Summary Admission Date: Sep 27, 2017 at 19:22 Discharge Date: September 28, 2017 Discharge Disposition: Home Principal Diagnosis: TIA Problems/Secondary Diagnoses: E. coli UTI Moderate bilateral carotid artery stenosis Hypertension Chronic diastolic CHF CAD with history of NSTEMI status post BRANDI from 2011 Diabetes mellitus type 2, controlled, not on long-term insulin Hypertensive urgency Dyslipidemia Obesity, BMI 40.4 GERD Depression/anxiety Hypomagnesemia Immunizations: Have You Had Influenza Vaccine: No History of Tetanus Vaccine?: No History of Pneumococcal: No History of Hepatitis B Vaccine: Unknown Procedures: MRI brain CT angiogram of the head and neck Chest x-ray Echocardiogram Consultations: Neurology Medication Reconciliation New Medications: Atorvastatin (Lipitor) 40 Mg Tab 40 MG PO QAM for 30 Days, #30 TAB Ciprofloxacin (Ciprofloxacin HCl) 500 Mg Tab 500 MG PO BID for 3 Days, #5 TAB Clopidogrel Bisulfate (Clopidogrel) 75 Mg Tab 75 MG PO QAM for 30 Days, #30 TAB Continued Medications: Acetaminophen (Tylenol) 500 Mg Tab 1000 MG PO TID PRN for Pain Calcium Carbonate-Vitamin D (Calcium + D) 1 Tab Tab 1 TAB PO BID Citalopram Hydrobromide (Celexa) 40 Mg Tab 20 MG PO QAM Ergocalciferol (Vitamin D 26333 Unit) 50,000 Unit Cap 05320 INTER.UNIT PO MONTHLY Ferrous Sulfate (Ferrous Sulfate) 325 Mg Tab 325 MG PO BID Glimepiride (Amaryl) 1 Mg Tab 1 MG PO QAM, TAB Isosorbide Mononitrate (Isosorbide Mononitrate ER) 30 Mg Tabcr 30 MG PO QAM Lisinopril (Zestril) 20 Mg Tab 20 MG PO QAM Metformin Hcl (Glucophage) 1,000 Mg Tab 1000 MG PO BID, TAB Metoprolol Tartrate (Lopressor) 25 Mg Tab 25 MG PO BID Omeprazole (Prilosec) 20 Mg Capcr 20 MG PO QAM Pediatric Multiple Vitamin W/ (Flintstones Chewable) 1 Chw Chw 1 TAB PO BID, TAB Discontinued Medications: Aspirin (Aspirin Ec) 81 Mg Tab 81 MG PO QAM Atorvastatin (Lipitor) 10 Mg Tab 10 MG PO QAM, TAB Loperamide Hcl (Imodium) 2 Mg Cap 4-6 MG PO DAILY PRN for Diarrhea Naproxen (Aleve) 220 Mg Tab 220 MG PO BID, TAB Discharge Exam Patient doing very well on the day of discharge. Denies headache, lightheadedness, visual symptoms, chest pain or shortness of breath, heart palpitations, abdominal pain, no diarrhea or constipation, no further weakness, numbness, or tingling. No speech difficulties. I discussed the case with the neurologist. Telemetry with normal sinus rhythm without any ectopy or arrhythmia. Review of Systems: Constitutional: No problem reported Eyes: No problem reported ENT: No problem reported Respiratory: No problem reported Cardiovascular: No problem reported Abdomen: No problem reported Musculoskeletal: No problem reported Genitourinary - Female: No problem reported Neurologic: No problem reported Psychiatric: No problem reported Endocrine: No problem reported Hematologic / Lymphatic: No problem reported Integumentary: No problem reported Physical Exam: General Appearance: WD/WN, no apparent distress, + obese Eyes: normal inspection, PERRL (With slight ovoid appearance of the right greater than the left pupil due to previous cataract surgery), EOMI, sclerae normal ENT: hearing grossly normal, pharynx normal Neck: supple, no adenopathy, thyroid normal, no JVD, no carotid bruits, trachea midline Respiratory/Chest: lungs clear, normal breath sounds, no respiratory distress, no accessory muscle use Cardiovascular: regular rate, rhythm, no edema, no gallop, no JVD, no murmur , normal peripheral pulses Abdomen / GI: normal bowel sounds, non tender, soft, no organomegaly Extremities: normal inspection, no calf tenderness, normal capillary refill , no pedal edema, normal range of motion Neurologic/Psychiatric: msws II-XII nml as tested, no motor/sensory deficits , alert, normal mood/affect, oriented x 3 Skin: normal color, warm/dry, no rash Hospital Course Pt is a 76 y/o female with a history of CAD, h/o NSTEMI s/p stent, HTN, HLD, DM II, h/o gastric bypass, depression, anxiety, and GERD who presented to the ED on 09/27 with right arm numbness and weakness, facial droop, and slurred speech. Symptoms resolved after 15-20 minutes. BP elevated on arrival, 200/89. BP then improved to 174/88. Vital signs otherwise stable. Head CT no acute disease. CXR no acute disease. EKG no ischemic changes. Cardiac enzymes negative. She was not treated with tPA due to resolution of symptoms. She had no events on telemetry. MRI brain showed no CVA. Seen by Neurology who agreed with switching to Plavix and stopping ASA, increased statin dose to 40mg for high intensity. She was found to have a normal CTA head, but had moderate bilateral NELIDA found on CTA neck. This should be followed with annual carotid US , and managed with Plavix and statin, control of DMII and HTN. ECHO showed grade 1 diastolic dysfunction, but otherwise borderline LVH and normal LVEF. Stable for discharge to home. Hypomagnesemia -Magnesium 1.7 on admission -Magnesium sulfate 1 gm IV x 1, continue to monitor CAD, h/o NSTEMI s/p stent, HTN, HLD--stable -Continue ASA, Lopressor 25 mg PO BID, lisinopril 20 mg PO qd, Imdur 30 mg PO qd -Lipitor increased as above DM II-- HgbA1c well controlled here at 6.4% -continue metformin, glimepiride on dc Depression, anxiety-stable -Continue Celexa 20 mg PO qd GERD -Continue PPI Total Time Spent: Greater than 30 minutes This includes examination of the patient, discharge planning, medication reconciliation, and communication with other providers. Discharge Instructions Please refer to the electronic Patient Visit Report (Discharge Instructions) for additional information. Follow-Up With PCP within 1 week of discharge Additional Copies To Patrick Acuña M.D.
[2017-09-28] MEDS ORDERED: PRT40 PO (12:46)
--- NOTE | 2017-09-28 13:00 | ECHOCARDIOGRAM REPORT ---
*NOTICE TO RECEIVING [employer] This information is strictly Confidential and protected under [place] law. [place] law prohibits you from making any further disclosure of this information unless further disclosure is expressly permitted by the written consent of the person to whom it pertains or is authorized by law. A general authorization for the release of medical or other information is not sufficient for this purpose. Hospital accepts no responsibility if the information is made available to any other person, INCLUDING THE PATIENT. Interpretation Summary * Name: EUGENE REID Study Date: 09/28/2017 08:16 AM BP: 178/78 mmHg * Patient Location: .2T\S\E217\S\1 HR: 64 * : 1940 (M/d/yyyy) Gender: Female Height: 63 in * Age: 76 yrs Ethnicity: CA Weight: 234 lb * Ordering Physician: Malia Chan * Referring Physician: Self, Referred * Performed By: Meseret Briones RDCS * * Reason For Study: Cerebral Ischemia/Embolus * BSA: 2.1 m2 * -- Conclusions -- * Left ventricular systolic function is normal. * No regional wall motion abnormalities noted. * Ejection Fraction = 60-65%. * There is borderline concentric left ventricular hypertrophy. * Grade I diastolic dysfunction, (abnormal relaxation pattern). * Injection of contrast documented no interatrial shunt. Procedure Details * A complete two-dimensional transthoracic echocardiogram was performed (2D, M-mode, Doppler and color flow Doppler). * The study was technically difficult. * The study was technically difficult, but visualization was adequate with the administration of Definity ultrasound contrast. * There were technical limitations due to patient'sbody habitus * A saline contrast injection was performed to assess for cardiac shunting. * The injection was performed through an intravenous line in the right arm. * The attending nurse who injected the saline contrast was Nishant Devine RN. * A total of 20 cc of agitated saline was given. * A contrast injection of Definity was performed to improve assessment of LV function. * Contrast was injected into an intravenous site in the right arm. * One vial of Definity ultrasound contrast was diluted in normal saline to a total volume of 10 ml. A total of '2' ml of solution was administered during imaging. * Lot # [id number] of Definity utilized for procedure. * Expiration date 1Apr19. * The attending nurse who injected the contrast agent was Nishant Devine RN. Left Ventricle * The left ventricle is normal in size. * There is borderline concentric left ventricular hypertrophy. * Ejection Fraction = 60-65%. * Left ventricular systolic function is normal. * No regional wall motion abnormalities noted. Right Ventricle * The right ventricle is grossly normal size. * The right ventricular systolic function is normal as assessed by tricuspid annular plane systolic excursion (TAPSE) (normal >1.5 cm). Atria * The left atrium is mildly dilated. * Right atrium not well visualized. * Injection of contrast documented no interatrial shunt. Mitral Valve * The mitral valve is grossly normal. * There is no mitral valve stenosis. * Significant mitral regurgitation is absent. Tricuspid Valve * The tricuspid valve is not well visualized, but is grossly normal. * There is no tricuspid stenosis. * Significant tricuspid regurgitation is absent. Aortic Valve * The aortic valve is trileaflet. * The aortic valve opens well. * Aortic valve sclerosis mild, without significant aortic valvular stenosis. * No aortic regurgitation is present. Pulmonic Valve * The pulmonary valve is not well seen, but the Doppler examination is normal without significant regurgitation or stenosis. Great Vessels * The aortic root is normal size. * The pulmonary is not well visualized. Pericardium/Pleural * There is no pericardial effusion. Great Vessels * The inferior vena cava is not well visualized. Left Ventricular Diastolic Function * Grade I diastolic dysfunction, (abnormal relaxation pattern). MMode 2D Measurements and Calculations IVSd 1.1 cm LVIDd 3.1 cm LVIDs 2.2 cm LVPWd 1.3 cm IVS/LVPW 0.89 FS 30.1 % EDV(Teich) 38.6 ml ESV(Teich) 15.9 ml EF(Teich) 58.8 % EDV(cubed) 30.5 ml ESV(cubed) 10.4 ml EF(cubed) 65.9 % LV mass(C)d 116.4 grams LV mass(C)dI 56.3 grams/m\S\2 SV(Teich) 22.7 ml SI(Teich) 11.0 ml/m\S\2 SV(cubed) 20.1 ml SI(cubed) 9.7 ml/m\S\2 Ao root diam 2.8 cm Ao root area 6.0 cm\S\2 ACS 1.7 cm LA dimension 2.8 cm LA/Ao 1.0 LVAd ap4 28.7 cm\S\2 LVLd ap4 7.4 cm EDV(MOD-sp4) 95.0 ml EDV(sp4-el) 94.5 ml LVAs ap4 17.9 cm\S\2 LVLs ap4 7.0 cm ESV(MOD-sp4) 43.6 ml ESV(sp4-el) 38.6 ml EF(MOD-sp4) 54.1 % EF(sp4-el) 59.1 % LVAd ap2 29.2 cm\S\2 LVLd ap2 8.2 cm EDV(MOD-sp2) 89.8 ml EDV(sp2-el) 88.6 ml LVAs ap2 15.4 cm\S\2 LVLs ap2 7.1 cm ESV(MOD-sp2) 29.7 ml ESV(sp2-el) 28.2 ml EF(MOD-sp2) 66.9 % EF(sp2-el) 68.2 % LVLd %diff 9.5 % EDV(MOD-bp) 97.5 ml LVLs %diff 1.5 % ESV(MOD-bp) 35.9 ml EF(MOD-bp) 63.1 % SV(MOD-sp4) 51.4 ml SI(MOD-sp4) 24.9 ml/m\S\2 SV(MOD-sp2) 60.1 ml SI(MOD-sp2) 29.1 ml/m\S\2 SV(MOD-bp) 61.6 ml SI(MOD-bp) 29.8 ml/m\S\2 SV(sp4-el) 55.9 ml SI(sp4-el) 27.0 ml/m\S\2 SV(sp2-el) 60.4 ml SI(sp2-el) 29.2 ml/m\S\2 Doppler Measurements and Calculations MV E max royal 81.0 cm/sec MV A max royal 102.3 cm/sec MV E/A 0.79 MV dec time 0.29 sec Ao V2 max 138.7 cm/sec Ao max PG 7.7 mmHg Ao max PG (full) 4.7 mmHg LV V1 max PG 3.0 mmHg LV V1 max 86.3 cm/sec PA V2 max 96.4 cm/sec PA max PG 3.7 mmHg
--- NOTE | 2017-09-28 13:17 | Pharmacy Progress Note ---
Pharmacist Stroke Counseling Date of Service September 28, 2017. Scope Pharmacy has been consulted to provide medication discharge counseling for this patient admitted with transient ischemic attack as per the Pharmacist Discharge Counseling for Stroke Patients Protocol. Medications on Discharge New Medications: Atorvastatin (Lipitor) 40 Mg Tab 40 MG PO QAM for 30 Days, #30 TAB Ciprofloxacin (Ciprofloxacin HCl) 500 Mg Tab 500 MG PO BID for 3 Days, #5 TAB Clopidogrel Bisulfate (Clopidogrel) 75 Mg Tab 75 MG PO QAM for 30 Days, #30 TAB Pantoprazole (Pantoprazole Sodium) 40 Mg Tab 40 MG PO QAM for 30 Days, #30 TAB Continued Medications: Acetaminophen (Tylenol) 500 Mg Tab 1000 MG PO TID PRN for Pain Calcium Carbonate-Vitamin D (Calcium + D) 1 Tab Tab 1 TAB PO BID Citalopram Hydrobromide (Celexa) 40 Mg Tab 20 MG PO QAM Ergocalciferol (Vitamin D 37989 Unit) 50,000 Unit Cap 12632 INTER.UNIT PO MONTHLY Ferrous Sulfate (Ferrous Sulfate) 325 Mg Tab 325 MG PO BID Glimepiride (Amaryl) 1 Mg Tab 1 MG PO QAM, TAB Isosorbide Mononitrate (Isosorbide Mononitrate ER) 30 Mg Tabcr 30 MG PO QAM Lisinopril (Zestril) 20 Mg Tab 20 MG PO QAM Metformin Hcl (Glucophage) 1,000 Mg Tab 1000 MG PO BID, TAB Metoprolol Tartrate (Lopressor) 25 Mg Tab 25 MG PO BID Pediatric Multiple Vitamin W/ (Flintstones Chewable) 1 Chw Chw 1 TAB PO BID, TAB Discontinued Medications: Aspirin (Aspirin Ec) 81 Mg Tab 81 MG PO QAM Atorvastatin (Lipitor) 10 Mg Tab 10 MG PO QAM, TAB Loperamide Hcl (Imodium) 2 Mg Cap 4-6 MG PO DAILY PRN for Diarrhea Naproxen (Aleve) 220 Mg Tab 220 MG PO BID, TAB Omeprazole (Prilosec) 20 Mg Capcr 20 MG PO QAM Action The above medications, specifically ones for stroke treatment/prophylaxis, have been reviewed in detail with the patient and/or patient treasury representative(s) prior to discharge. This includes indication, common adverse reactions, drug interactions, and medication administration. Medication counseling has been employed using the teach-back method to ensure understanding. Outcome The patient and/or patient treasury representative(s) have demonstrated understanding of the medications. Please note, they are aware that the pharmacist will call them within 72 hours post-discharge to confirm that the appropriate medications are being taken and answer any further medication related questions the patient might have at that time. Contact information Individual to be contacted: patient Phone number: [phone] Best time to call: anytime Additional comments: I had the pleasure of counseling Mrs. Shine and her today. We reviewed the new medications as noted above and patient is aware of the 4 new medications to start and the ones to stop. I contacted Dr. Erazo to recommend changing the omeprazole to pantoprazole d/t the reported drug interaction with clopidogrel. This change has been made and patient is aware. With the naproxen being stopped, the patient was questioning about her leg pain that she was using this for. I advised her that the Tylenol was a safer alternative in terms of risk of bleeding. Patient also noted that she has an upcoming minor dental procedure and was questioning if the Plavix would need stopped for this. I told her it was unlikely but reminded her to notify her dentist that she is on the Plavix. Thank you for allowing pharmacy to be involved in the care of this patient. Please call [phone] or [phone] with any additional questions
[2017-09-28] MEDS ORDERED: CIPROFLOXACIN 500 MG TAB PO SCH (21:00)
--- NOTE | 2017-10-01 10:05 | Pharmacy Progress Note ---
Pharmacist Post D/C Phone Note Date of phone call: October 01, 2017. Individual with whom pharmacist spoke to: Damari, patient The following questions were reviewed during the phone call with responses listed below each: Can you tell me the medications that you are currently taking as well as when and how you take each medication? - Patient was able to identify medications and knew changes that were made. Patient reported that she stopped the aspirin, omeprazole and aleve When have you missed any doses of your medications? - Patient reports she has not missed any doses What side effects are you having from your medications? - Patient is currently not having any side effects What questions do you have about your medications? - Patient does not have any questions What problems are you having obtaining your medications? - Patient was able to get all medications When is your next appointment with your primary care doctor? - October 05 @ 1300 Additional comments: - Damari was very pleasant to speak with, she demonstrated an understanding of the her current drug regimen and changes that had been made. As per the Pharmacist Discharge Counseling for Stroke Patients Protocol, this phone call has been completed within 72 hours of discharge. Thank you for allowing us to be involved in the care of this patient.
== END 2017-09-28 12:45 | disposition home or self-care (01) ==
LOC: C.EDB 16:40 → C.2T 19:22 → ENRESERV 19:53
PROVIDERS: ADMIT Internal Medicine; ATTEND Internal Medicine
DX: G45.9 Transient cerebral ischemic attack, unspecified (principal); N39.0 Urinary tract infection, site not specified; A49.8 Other bacterial infections of unspecified site; I25.10 Atherosclerotic heart disease of native coronary artery without angina pectoris; I10 Essential (primary) hypertension; E78.5 Hyperlipidemia, unspecified; I50.9 Heart failure, unspecified; I16.0 Hypertensive urgency; E11.9 Type 2 diabetes mellitus without complications; E83.42 Hypomagnesemia; K21.9 Gastro-esophageal reflux disease without esophagitis; F32.9 Major depressive disorder, single episode, unspecified; F41.9 Anxiety disorder, unspecified; Z90.49 Acquired absence of other specified parts of digestive tract; Z95.818 Presence of other cardiac implants and grafts; Z82.49 Family history of ischemic heart disease and other diseases of the circulatory system; Z79.82 Long term (current) use of aspirin; Z88.8 Allergy status to other drugs, medicaments and biological substances; Z98.84 Bariatric surgery status; Z96.653 Presence of artificial knee joint, bilateral

== ENCOUNTER → 2017-10-05 | Outpatient (CLI) | payer OTHER ==
[~2017-10-05] MED LIST changes: -ASPI-435 PO; -ATOR-14 PO; -CALC1TAB9 PO; +CALC600T9 PO; +CPR500 PO; -FERR1TAB13 PO; +FERR1TAB62 PO; +GLIM1TAB PO; -IMD/2 PO; +ISOS-11 PO; +LPT40 PO; -MULTTAB58 PO; +PEDICHW50 PO; +PLV75 PO; -PRLSR20 PO; +PRT40 PO
--- NOTE | 2017-10-05 15:01 | DIAGNOSTIC IMAGING REPORT ---
L HIP UNILATERAL 2 VIEWS CLINICAL HISTORY: R10.32 Left groin [id number] pain COMPARISON: None. DISCUSSION: Moderate degenerative narrowing left hip joint space. No well-defined fracture or dislocation. No evidence for acetabular protrusion. There is no evidence for soft tissue swelling. IMPRESSION: Moderate degenerative narrowing left hip joint space. No acute process. The above report was generated using voice recognition software. It may contain grammatical, syntax or spelling errors. Electronically signed by: Liam Gomez M.D. 10/05/2017 2:59 PM Dictated Date/Time: 10/05/2017 2:56 PM
--- NOTE | 2017-10-05 15:04 | DIAGNOSTIC IMAGING REPORT ---
L VENOUS DOPP LOWER EXT UNILAT HISTORY: 76 years-old Female R10.32 Left groin [id number] acute left groin pain COMPARISON: None available TECHNIQUE: Multiple real-time sonographic images of the left lower extremity deep venous structures were obtained assessing grayscale appearance, color and spectral flow FINDINGS: There is normal compressibility, flow, phasicity and augmentation of the left lower extremity deep venous structures. IMPRESSION: No sonographic evidence of deep venous thrombosis. The above report was generated using voice recognition software. It may contain grammatical, syntax or spelling errors. Electronically signed by: Eliazar Silveira M.D. 10/05/2017 3:03 PM Dictated Date/Time: 10/05/2017 3:02 PM
[2017-10-05 17:52] LABS: ALBUMIN 3.5 gm/dl (3.4-5.0); ALT/SGPT 21 U/L (12-78); AST/SGOT 20 U/L (15-37); BASO % 0.4 %; BASO ABS # 0.04 K/uL (0-0.2); BLOOD UREA NITROGEN 17 mg/dl (7-18); CARBON DIOXIDE 26 mmol/L (21-32); CREATININE 1.14 mg/dl (0.60-1.20); EOS % 1.8 %; EOS ABS # 0.18 K/uL (0-0.5); GLUCOSE 90 mg/dl (70-99); IG# 0.03 K/uL (0.00-0.02); LYMPH % 27.8 %; LYMPH ABS # 2.79 K/uL (1.2-3.4); MEAN CORPUSCULAR HEMOGLOBIN 29.7 pg (25-34); MEAN CORPUSCULAR HGB CONC 33.3 g/dl (32-36); MEAN PLATELET VOLUME 12.3 fL (7.4-10.4); MONO % 9.5 %; MONO ABS # 0.95 K/uL (0.11-0.59); NEUT % 60.2 %; NEUT ABS # 6.06 K/uL (1.4-6.5); PLATELET COUNT 293 K/uL (130-400); RED CELL DISTRIBUTION WIDTH CV 13.2 % (11.5-14.5); RED CELL DISTRIBUTION WIDTH SD 42.9 fL (36.4-46.3); SODIUM 136 mmol/L (136-145); WHITE BLOOD COUNT 10.05 K/uL (4.8-10.8)
[2017-10-05 17:54] LABS: ALKALINE PHOSPHATASE 130 U/L (45-117); TOTAL PROTEIN 6.9 gm/dl (6.4-8.2)
[2017-10-06 06:30] LABS: HEMOGLOBIN A1C 6.5 % (4.5-5.6)
== END | disposition home or self-care (01) ==
LOC: C.ULTRBC 14:08
PROVIDERS: ATTEND Physician Assistant Medical
DX: D68.51 Activated protein C resistance (principal); M79.606 Pain in leg, unspecified; R10.32 Left lower quadrant pain; N39.0 Urinary tract infection, site not specified; E11.9 Type 2 diabetes mellitus without complications; F41.8 Other specified anxiety disorders; I25.10 Atherosclerotic heart disease of native coronary artery without angina pectoris; I10 Essential (primary) hypertension; E78.5 Hyperlipidemia, unspecified; M16.12 Unilateral primary osteoarthritis, left hip